=== PATIENT | male | born 1985 | race Asian ===

== ENCOUNTER 2017-04-12 01:56 | Emergency (ER) | payer OTHER ==
[~2017-04-12] VITALS: Ht 175.3 cm; Wt 63.5 kg
--- NOTE | 2017-04-12 03:10 | NUR ---
PT BIB FRIEND, PT AMBULATORY TO ROOM WITH CRUTCHES. 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 PT AOX3 RR EVEN AND UNLABORED. NO SOB NOTED. NAD NOTED. NO NVD AT THIS TIME. PT WAITING FOR MD DESAI.
[2017-04-12] MEDS ORDERED: HYDROCODONE/APAP 5/325MG 1 EACH TABLET PO ONE (03:30)
--- NOTE | 2017-04-12 03:43 | NUR ---
RADIOLOGY AT BEDSIDE FOR XRAY
[2017-04-12] MEDS ORDERED: HYDROCODONE/APAP 5/325MG 1 EACH TABLET ONE (03:44)
--- NOTE | 2017-04-12 04:48 | NUR ---
Patient discharged to home in stable condition. Written and verbal after care instructions given. Patient verbalizes understanding of instruction. PT GIVEN PRESCRIPTION FOR [employer] AND PT TOLD TO NOT DRIVE OR WORK WHILE TAKING [employer] PT VERBALLY VERIFIED INSTRUCTIONS
[2017-04-12 04:50] VITALS: BP 124/60
== END 2017-04-12 04:51 | disposition home or self-care (01) ==
LOC: ER 01:56
DX: S93.601A Unspecified sprain of right foot, initial encounter (principal); S90.31XA Contusion of right foot, initial encounter; X58.XXXA Exposure to other specified factors, initial encounter; Y93.89 Activity, other specified; Y92.89 Other specified places as the place of occurrence of the external cause; Y99.8 Other external cause status
CPT/HCPCS: 73630; 99284; A4606; Z7610